=== PATIENT | female | born 1960 | race Caucasian/White ===

== ENCOUNTER 2020-10-07 19:27 | Emergency (ER) | payer OTHER ==
[2020-10-07] MEDS ORDERED: NEBIVOLOL 10 MG TABLET (FP) PO ONE (19:39)
[2020-10-07 19:54] VITALS: PULSE 73; TEMP 98.6; BMI 29.7
[2020-10-07 20:13] LABS: BASO % 1.7 % (0-2.0); EOS % 1.1 % (0-4.5); HEMATOCRIT 44.7 % (32.4-45.2); HEMOGLOBIN 15.4 GM/dl (10.7-15.3); LYMPH % 21.2 % (8-40); MCH 33.4 pg (25.7-33.7); MCHC 34.5 g/dl (32.0-36.0); MEAN CELL VOLUME 96.8 fl (80-96); MEAN PLT VOLUME 9.3 fl (7.5-11.1); MONO % 5.6 % (3.8-10.2); NEUT % 70.4 % (42.8-82.8); PLATELET COUNT 255 10^3/uL (134-434); RBC 4.62 M/mm3 (3.60-5.2); RDW 12.7 % (11.6-15.6); WHITE BLOOD COUNT 6.3 K/mm3 (4.0-10.8)
[2020-10-07] MEDS ORDERED: MECLIZINE HCL 25 MG TABLET (FP) PO ONE (20:25)
[2020-10-07 20:35] VITALS: BP 183/106
[2020-10-07] MEDS ORDERED: MECLIZINE HCL 25 MG TABLET (FP) ONE (20:36)
[2020-10-07 21:05] LABS: ALBUMIN 4.2 g/dl (3.4-5.0); CALCIUM 9.1 mg/dl (8.5-10); CREATININE 0.6 mg/dl (0.55-1.3); TOT PROT 7.1 g/dl (6.4-8.2)
== END 2020-10-07 21:39 | disposition home or self-care (01) ==
LOC: FER 19:27
DX: R42 Dizziness and giddiness (principal); I10 Essential (primary) hypertension
CPT/HCPCS: 36415; 70450-TC; 80053; 85025; 99284-25

== ENCOUNTER 2021-01-26 22:28 | Emergency (ER) | payer OTHER ==
[2021-01-26 22:40] VITALS: TEMP 98; BMI 29.9
[2021-01-26] MEDS ORDERED: KETOROLAC TROMETHAMINE 30 MG/1 ML VIAL ONE (22:51)
[2021-01-26] MEDS ORDERED: KETOROLAC TROMETHAMINE 30 MG/1 ML VIAL IVPUSH ONE (22:56)
[2021-01-26] MEDS ORDERED: SODIUM CHLORIDE 1,000 ML IV STA (22:56)
[2021-01-26 23:07] LABS: HEMATOCRIT 40.7 % (32.4-45.2); HEMOGLOBIN 13.9 GM/dl (10.7-15.3); MCH 32.8 pg (25.7-33.7); MCHC 34.1 g/dl (32.0-36.0); MEAN PLT VOLUME 8.9 fl (7.5-11.1); PLATELET COUNT 290 10^3/uL (134-434); RBC 4.24 M/mm3 (3.60-5.2); RDW 12.2 % (11.6-15.6); WHITE BLOOD COUNT 6.7 K/mm3 (4.0-10.8)
[2021-01-26 23:28] LABS: ALBUMIN 4.3 g/dl (3.4-5.0); CALCIUM 9.7 mg/dl (8.5-10); CREATININE 0.6 mg/dl (0.55-1.3); TOT PROT 7.4 g/dl (6.4-8.2)
[2021-01-26 23:29] LABS: PLATELET ESTIMATE ADEQUATE
[2021-01-27 01:06] VITALS: BP 152/76; PULSE 64
== END 2021-01-27 01:24 | disposition home or self-care (01) ==
LOC: FER 22:28
PROC: 3E0333Z Introduction of Anti-inflammatory into Peripheral Vein, Percutaneous Approach (ICD-10-PCS; principal; 2021-01-26)
PROC: 3E0337Z Introduction of Electrolytic and Water Balance Substance into Peripheral Vein, Percutaneous Approach (ICD-10-PCS; 2021-01-26)
DX: R10.9 Unspecified abdominal pain (principal)
CPT/HCPCS: 36415; 74176-TC; 80053; 81003; 81015; 85025; 87086; 87186; 99284-25